=== PATIENT | female | born 1980 | race Caucasian/White ===

== ENCOUNTER 2023-07-29 16:30 | Emergency (ER) | payer OTHER ==
[2023-07-29] MEDS: HYDROmorphone 1 MG/ML Syringe IM ONE ×2 (16:53→17:47)
[2023-07-29] MEDS: Ondansetron 4 MG Tab.DIS PO ONE (19:10)
== END 2023-07-29 19:15 | disposition home or self-care (01) ==
LOC: JP.ED 16:30
DX: S42.352A Displaced comminuted fracture of shaft of humerus, left arm, initial encounter for closed fracture (principal); Z88.1 Allergy status to other antibiotic agents; Z79.85 Long-term (current) use of injectable non-insulin antidiabetic drugs; Z79.899 Other long term (current) drug therapy; V86.65XA Passenger of 3- or 4- wheeled all-terrain vehicle (ATV) injured in nontraffic accident, initial encounter; Y93.89 Activity, other specified
CPT/HCPCS: 29105; 73060; 96372; 99283; J1170; Q0162